=== PATIENT | male | born 1955 | race Two or more races ===

== ENCOUNTER 2025-05-31 10:59 | Inpatient (IN) | payer OTHER ==
[2025-05-31 13:37] LABS: #Basophils 0.04 10x3/uL (0.0-0.2); #Eosinophils 0.21 10x3/uL (0.0-0.7); #Monocytes 0.73 10x3/uL (0.11-0.59); #Neutrophils 5.08 10x3/uL (1.40-6.50); %Basophils 0.5 % (0.0-1.0); %Eosinophils 2.7 % (0.0-10.0); %Lymphocytes 21.4 % (21.0-51.0); %Monocytes 9.4 % (0.0-10.0); %Neutrophils 65.5 % (42.0-75.0); Hematocrit 49.5 % (42.0-52.0); Hemoglobin 17.3 g/dL (14.0-18.0); Mean Corpuscular Hemoglobin 31.7 pg (27.0-31.0); Mean Corpuscular Volume 90.8 fL (78.0-98.0); Platelet Count 196 10x3/uL (130-400); Red Blood Cell (RBC) Count 5.45 mill/uL (4.70-6.10); White Blood Cell (WBC) Count 7.76 10x3/uL (4.8-10.8)
[2025-05-31 14:05] LABS: ALT (SGPT) 28 U/L (Less than 45); AST (SGOT) 25 U/L (11-34); Albumin 4.2 g/dL (3.1-4.5); Alkaline Phosphatase 64 U/L (40-110); Anion Gap 11 mmol/L (10-20); BUN (Urea Nitrogen) 12 mg/dL (8.4-25.7); Bilirubin, Total 0.7 mg/dL (0.3-1.2); Calc. Creatinine Clearance 0 mL/min (70-130); Calcium 8.4 mg/dL (7.8-10.44); Carbon Dioxide 27 mmol/L (23-31); Chloride 106 mmol/L (98-107); Globulin 2.3 g/dL (2.4-3.5); Glucose 83 mg/dL (80-115); Potassium 4.2 mmol/L (3.5-5.1); Sodium 140 mmol/L (136-145)
[2025-05-31 14:20] LABS: Troponin I 0.251 ng/mL (< 0.028)
[2025-05-31] MEDS ORDERED: Aspirin Chewable 81 MG TAB ONE (14:53)
[2025-05-31] MEDS ORDERED: Nitroglycerin 2% Ointment 1 INCH/1 GM Packet ONE (14:53)
[2025-05-31 16:59] LABS: Troponin I 0.270 ng/mL (< 0.028)
[2025-05-31] MEDS ORDERED: Ondansetron PF 4 MG/2 ML Vial IVP PRN (17:56)
[2025-05-31 18:15] VITALS: BMI 29.8
[2025-05-31 19:08] LABS: Magnesium 2.4 mg/dL (1.6-2.6)
[2025-05-31 20:19] LABS: Critical Call Chem Troponin I RESULT DECREASING; Troponin I 0.252 ng/mL (< 0.028)
[2025-05-31] MEDS: Enoxaparin 100 MG (1 mL) SYRINGE SC SCH (22:19)
[2025-05-31] MEDS: Ketorolac Tromethamine 30 MG (1 mL) VIAL IVP SCH (22:20)
[2025-06-01] MEDS: Acetaminophen 325 MG TAB PO PRN (03:30)
[2025-06-01 05:08] LABS: #Basophils 0.05 10x3/uL (0.0-0.2); #Eosinophils 0.24 10x3/uL (0.0-0.7); #Monocytes 0.69 10x3/uL (0.11-0.59); #Neutrophils 5.86 10x3/uL (1.40-6.50); %Basophils 0.6 % (0.0-1.0); %Eosinophils 2.8 % (0.0-10.0); %Lymphocytes 18.5 % (21.0-51.0); %Monocytes 8.2 % (0.0-10.0); %Neutrophils 69.4 % (42.0-75.0); Hematocrit 50.5 % (42.0-52.0); Hemoglobin 17.3 g/dL (14.0-18.0); Mean Corpuscular Hemoglobin 31.3 pg (27.0-31.0); Mean Corpuscular Volume 91.3 fL (78.0-98.0); Platelet Count 198 10x3/uL (130-400); Red Blood Cell (RBC) Count 5.53 mill/uL (4.70-6.10); White Blood Cell (WBC) Count 8.44 10x3/uL (4.8-10.8)
[2025-06-01 05:34] LABS: Anion Gap 13 mmol/L (10-20); BUN (Urea Nitrogen) 16 mg/dL (8.4-25.7); Calc. Creatinine Clearance 98 mL/min (70-130); Calcium 8.7 mg/dL (7.8-10.44); Carbon Dioxide 24 mmol/L (23-31); Chloride 106 mmol/L (98-107); Glucose 105 mg/dL (80-115); Potassium 4.0 mmol/L (3.5-5.1); Sodium 139 mmol/L (136-145)
[2025-06-01] MEDS ORDERED: Communication Order-Pharmacy FS SCH ×2 (09:15)
[2025-06-01] MEDS ORDERED: Iopamidol 370 76% 100 ML VIAL ONE (10:00)
[2025-06-01] MEDS ORDERED: Heparin 10,000 UNITS/ 10 ML VIAL ONE (10:10)
[2025-06-01] MEDS ORDERED: PHENYLEPHRINE-NS 100 MCG/ML 10 ML SYRINGE ONE (10:10)
[2025-06-01] MEDS ORDERED: Lidocaine 1% (PF) 30 ML VIAL ONE (10:10)
[2025-06-01] MEDS ORDERED: Nitroglycerin 50 MG/250 ML BOT 0 ML ONE (10:10)
[2025-06-01] MEDS: Fioricet 325/50/40 mg Tablet PO PRN (12:37)
[2025-06-01] MEDS: Aspirin 81 mg Enteric Coated Tablet PO SCH (12:38)
[2025-06-01] MEDS: valACYclovir 500 MG TAB PO SCH (12:38)
[2025-06-01] MEDS: Pantoprazole 40 MG DR.TAB PO SCH (12:38)
[2025-06-01] MEDS: Sertraline 100 MG TAB PO SCH (12:38)
[2025-06-01] MEDS: Losartan 25 MG TAB PO SCH (14:23)
[2025-06-02 07:19] LABS: Campy jejuni + coli by PCR Negative (Negative); STEC Shiga Toxin 1+2 Negative (Negative); Salmonella spp. by PCR Negative (Negative); Shigella spp + EIEC by PCR Negative (Negative)
[2025-06-02] MEDS: Losartan 25 MG TAB PO SCH (08:26)
[2025-06-02 08:59] VITALS: BP 130/70; TEMP 98.3
== END 2025-06-02 12:32 | disposition home or self-care (01) | DRG 282 ==
LOC: ERS 10:59 → OBS 16:10 → OBSVTOIN 06-01 11:32
PROVIDERS: ADMIT Internal Medicine; ATTEND Family Medicine
PROC: 4A023N7 Measurement of Cardiac Sampling and Pressure, Left Heart, Percutaneous Approach (ICD-10-PCS; principal; 2025-06-01)
PROC: B2151ZZ Fluoroscopy of Left Heart using Low Osmolar Contrast (ICD-10-PCS; 2025-06-01)
PROC: B2111ZZ Fluoroscopy of Multiple Coronary Arteries using Low Osmolar Contrast (ICD-10-PCS; 2025-06-01)
PROC: 3E033XZ Introduction of Vasopressor into Peripheral Vein, Percutaneous Approach (ICD-10-PCS; 2025-06-01)
PROC: 5A09357 Assistance with Respiratory Ventilation, Less than 24 Consecutive Hours, Continuous Positive Airway Pressure (ICD-10-PCS; 2025-06-01)
DX: I21.4 Non-ST elevation (NSTEMI) myocardial infarction (principal); I10 Essential (primary) hypertension; I25.10 Atherosclerotic heart disease of native coronary artery without angina pectoris; F41.9 Anxiety disorder, unspecified; G47.30 Sleep apnea, unspecified; R00.1 Bradycardia, unspecified; Z79.82 Long term (current) use of aspirin; Z79.899 Other long term (current) drug therapy; Z98.41 Cataract extraction status, right eye; Z98.42 Cataract extraction status, left eye; Z90.49 Acquired absence of other specified parts of digestive tract; Z98.890 Other specified postprocedural states; Z88.0 Allergy status to penicillin; Z88.1 Allergy status to other antibiotic agents
CPT/HCPCS: 36415; 71045; 80048; 80053; 83735; 83880; 84484; 85025; 85379; 87505; 93005; 93306; 93458; 94760; 96372; 96374; 99152; C1769; C1887; G0378; J0461; J1644; J1650; J1885; J2250; J3010; Q9967